=== PATIENT | female | born 1940 | race American Indian/Alaskan Native ===

== ENCOUNTER 2019-05-30 21:31 | Emergency (ER) | payer BC ==
--- NOTE | 2019-05-30 21:34 | Event Note ---
ED Screening Note ED Screening Note: 79 yo debilitated AA female comes to ER via EMS with daughter nohemi negro at home in bathroom. Not witnessed. Daughter states she was found awake- not thought to have loc. Pt has dementia and is a poor informant. She smells of urine ? UTI as etio of fall VSS. Pt in wheelchair and will not answer questions. 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 This initial assessment/diagnostic orders/clinical plan/treatment(s) is/are subject to change based on patients health status, clinical progression and re- assessment by fellow clinical providers in the ED. Further treatment and workup at subsequent clinical providers discretion. Patient/guardian urged not to elope from the ED as their condition may be serious if not clinically assessed and managed. Initial orders include: to ER for head to toe primary and secondary survey
[2019-05-30] MEDS ORDERED: TETANUS,DIPH,PERTUSS(ACELL) VACCINE 0.5 ML SYRINGE IM ONE (22:23)
[2019-05-30] MEDS ORDERED: ACETAMINOPHEN 325 MG TAB PO ONE (22:23)
[2019-05-30] MEDS ORDERED: SODIUM CHLORIDE IRRI 500 ML 500 ML IR ONE (22:37)
[2019-05-30] MEDS ORDERED: SODIUM CHLORIDE 0.9% IRR 500 ML BOTTLE IR ONE (22:45)
--- NOTE | 2019-05-30 22:50 | Emergency Department Report ---
ED Fall HPI - General Chief Complaint: Head Injury Stated Complaint: FELL,HEAD GASH Time Seen by Provider: 05/30/19 21:34 Source: patient, family Mode of arrival: Wheelchair - History of Present Illness Initial Comments: Patient is an 79-year-old female presents to the emergency room brought in by her daughter with complaints of a fall that occurred just prior to arrival. The patient's daughter states that she was getting out of the shower and slipped and fell and hit her head against the toilet seat. The daughter denies any loss of consciousness. She states that she immediately heard when the patient had the fall and went into check on her. She states that she has a laceration to the back of the scalp. The daughter denies her complaining of any chest pain, shortness of breath, dizziness, vomiting, diarrhea, any other complaints today. The daughter states that she is currently at her baseline. The patient denies any pain currently. She has a past medical history of dementia. Allergy to penicillin. Unsure of last tetanus immunization. - Related Data Allergies Allergy/AdvReac Type Severity Reaction Status Date / Time Penicillins Allergy Hives Verified 05/30/19 21:33 ED Review of Systems ROS: Stated complaint: FELL,HEAD GASH Other details as noted in HPI Comment: All other systems reviewed and negative ED Past Medical Hx - Past Medical History Previous Medical History?: Yes Additional medical history: dementia. bladder CA-REMISSION - Surgical History Additional Surgical History: HYSTERECTOMY. BLADDER CA - Social History Smoking Status: Never Smoker ED Physical Exam - General Limitations: No Limitations General appearance: alert, in no apparent distress - Head Head exam: Present: other (2 cm laceration present to the left posterior scalp, no muscle involvement, no visualized foreign body) - Eye Eye exam: Present: normal appearance, PERRL, EOMI, other (no racoon eyes, no signs of entrapement). Absent: periorbital swelling, periorbital tenderness Pupils: Present: normal accommodation - ENT ENT exam: Present: mucous membranes moist - Neck Neck exam: Present: normal inspection, full ROM. Absent: tenderness - Respiratory Respiratory exam: Present: normal lung sounds bilaterally. Absent: respiratory distress, wheezes, rales, rhonchi, stridor, chest wall tenderness, accessory muscle use, decreased breath sounds, prolonged expiratory - Cardiovascular Cardiovascular Exam: Present: regular rate, normal rhythm, normal heart sounds. Absent: systolic murmur, diastolic murmur, rubs, gallop - GI/Abdominal GI/Abdominal exam: Present: soft, normal bowel sounds. Absent: distended, tenderness, rebound, rigid - Extremities Exam Extremities exam: Present: full ROM, normal capillary refill, other (FROM of the BUE/BLE, pelvis is stable ). Absent: tenderness, pedal edema, joint swelling, calf tenderness - Back Exam Back exam: Present: normal inspection, full ROM. Absent: paraspinal tenderness, vertebral tenderness - Neurological Exam Neurological exam: Present: alert, CN II-XII intact, other (oriented to person, baseline per daughter). Absent: motor sensory deficit - Psychiatric Psychiatric exam: Present: normal affect, normal mood - Skin Skin exam: Present: warm ED Course Vital Signs 05/30/19 05/30/19 05/30/19 21:37 21:55 22:00 Temperature 98.2 F 97.9 F Pulse Rate 95 H 89 88 Respiratory 18 18 14 Rate Blood Pressure 155/76 157/85 Blood Pressure 157/87 [Left] O2 Sat by Pulse 100 100 100 Oximetry 05/30/19 05/30/19 05/31/19 22:30 23:30 00:00 Temperature Pulse Rate 88 87 85 Respiratory 15 13 18 Rate Blood Pressure 164/78 147/73 150/84 Blood Pressure [Left] O2 Sat by Pulse 98 98 Oximetry 05/31/19 05/31/19 05/31/19 00:30 00:55 01:10 Temperature Pulse Rate 79 Respiratory 17 18 18 Rate Blood Pressure 153/70 Blood Pressure [Left] O2 Sat by Pulse Oximetry - Laceration /Wound Repair Left Posterior Occipital Wound Location: head (left posterior scalp) Wound Length (cm): 2 Wound's Depth, Shape: superficial Wound Explored: clean Irrigated w/ Saline (ccs): 500 Betadine Prep?: Yes Anesthesia: 1% Lidocaine Volume Anesthetic (ccs): 2 Number of Sutures: 5 (davis) Layer Closure?: No Sterile Dressing Applied?: Yes Progress: Wound irrigated with saline and thoroughly scrubbed with Betadine, no foreign body, no muscle involvement, 2 cc of 1% lidocaine without epinephrine used as anesthetic, Betadine prep again, sterile drape applied, 5 davis placed, patient tolerated well, no complications, bleeding controlled ED Medical Decision Making - Lab Data Result diagrams: 05/30/19 22:50 05/30/19 22:50 Lab Results 05/30/19 05/30/19 05/30/19 Range/Units 22:50 22:50 22:50 WBC 10.2 (4.5-11.0) K/mm3 RBC 4.26 (3.65-5.03) M/mm3 Hgb 12.6 (10.1-14.3) gm/dl Hct 37.5 (30.3-42.9) % MCV 88 (79-97) fl MCH 30 (28-32) pg MCHC 34 (30-34) % RDW 17.5 H (13.2-15.2) % Plt Count 242 (140-440) K/mm3 Lymph % (Auto) 13.4 (13.4-35.0) % [place] % (Auto) 2.4 (0.0-7.3) % Eos % (Auto) 0.2 (0.0-4.3) % Baso % (Auto) 0.4 (0.0-1.8) % Lymph # 1.4 (1.2-5.4) K/mm3 [place] # 0.2 (0.0-0.8) K/mm3 Eos # 0.0 (0.0-0.4) K/mm3 Baso # 0.0 (0.0-0.1) K/mm3 Seg Neutrophils % 83.6 H (40.0-70.0) % Seg Neutrophils # 8.6 H (1.8-7.7) K/mm3 PT 14.5 (12.2-14.9) Sec. INR 1.11 (0.87-1.13) APTT 36.9 H (24.2-36.6) Sec. Sodium 145 (137-145) mmol/L Potassium 4.1 (3.6-5.0) mmol/L Chloride 106.7 (98-107) mmol/L Carbon Dioxide 26 (22-30) mmol/L Anion Gap 16 mmol/L BUN 23 H (7-17) mg/dL Creatinine 0.6 L (0.7-1.2) mg/dL Estimated GFR > 60 ml/min BUN/Creatinine Ratio 38 % Glucose 137 H (65-100) mg/dL Calcium 9.8 (8.4-10.2) mg/dL Total Bilirubin 0.40 (0.1-1.2) mg/dL AST 13 (5-40) units/L ALT 5 L (7-56) units/L Alkaline Phosphatase 61 (35-129) units/L Troponin T (0.00-0.029) ng/mL Total Protein 6.8 (6.3-8.2) g/dL Albumin 4.4 (3.9-5) g/dL Albumin/Globulin Ratio 1.8 % Urine Color (Yellow) Urine Turbidity (Clear) Urine pH (5.0-7.0) Ur Specific [place] (1.003-1.030) Urine Protein (Negative) mg/dL Urine Glucose (UA) (Negative) mg/dL Urine Ketones (Negative) mg/dL Urine Blood (Negative) Urine Nitrite (Negative) Urine Bilirubin (Negative) Urine Urobilinogen (<2.0) mg/dL Ur Leukocyte Esterase (Negative) Urine WBC (Auto) (0.0-6.0) /HPF Urine RBC (Auto) (0.0-6.0) /HPF U Epithel Cells (Auto) (0-13.0) /HPF Urine Mucus /HPF 05/30/19 05/30/19 Range/Units 22:50 Unknown WBC (4.5-11.0) K/mm3 RBC (3.65-5.03) M/mm3 Hgb (10.1-14.3) gm/dl Hct (30.3-42.9) % MCV (79-97) fl MCH (28-32) pg MCHC (30-34) % RDW (13.2-15.2) % Plt Count (140-440) K/mm3 Lymph % (Auto) (13.4-35.0) % [place] % (Auto) (0.0-7.3) % Eos % (Auto) (0.0-4.3) % Baso % (Auto) (0.0-1.8) % Lymph # (1.2-5.4) K/mm3 [place] # (0.0-0.8) K/mm3 Eos # (0.0-0.4) K/mm3 Baso # (0.0-0.1) K/mm3 Seg Neutrophils % (40.0-70.0) % Seg Neutrophils # (1.8-7.7) K/mm3 PT (12.2-14.9) Sec. INR (0.87-1.13) APTT (24.2-36.6) Sec. Sodium (137-145) mmol/L Potassium (3.6-5.0) mmol/L Chloride (98-107) mmol/L Carbon Dioxide (22-30) mmol/L Anion Gap mmol/L BUN (7-17) mg/dL Creatinine (0.7-1.2) mg/dL Estimated GFR ml/min BUN/Creatinine Ratio % Glucose (65-100) mg/dL Calcium (8.4-10.2) mg/dL Total Bilirubin (0.1-1.2) mg/dL AST (5-40) units/L ALT (7-56) units/L Alkaline Phosphatase (35-129) units/L Troponin T < 0.010 (0.00-0.029) ng/mL Total Protein (6.3-8.2) g/dL Albumin (3.9-5) g/dL Albumin/Globulin Ratio % Urine Color Yellow (Yellow) Urine Turbidity Clear (Clear) Urine pH 5.0 (5.0-7.0) Ur Specific [place] 1.024 (1.003-1.030) Urine Protein 30 mg/dl (Negative) mg/dL Urine Glucose (UA) Neg (Negative) mg/dL Urine Ketones Tr (Negative) mg/dL Urine Blood Neg (Negative) Urine Nitrite Neg (Negative) Urine Bilirubin Neg (Negative) Urine Urobilinogen 2.0 (<2.0) mg/dL Ur Leukocyte Esterase Neg (Negative) Urine WBC (Auto) 2.0 (0.0-6.0) /HPF Urine RBC (Auto) 1.0 (0.0-6.0) /HPF U Epithel Cells (Auto) < 1.0 (0-13.0) /HPF Urine Mucus 1+ /HPF - Radiology Data Radiology results: report reviewed CHEST 1 VIEW INDICATION / CLINICAL INFORMATION: fall, head injury. COMPARISON: None available. FINDINGS: SUPPORT DEVICES: None. HEART / MEDIASTINUM: No significant abnormality. LUNGS / PLEURA: No significant pulmonary or pleural abnormality. No pneumothorax. ADDITIONAL FINDINGS: No significant additional findings. IMPRESSION: No acute pulmonary or pleural abnormality Signer Name: Juan Jose Quintana MD FACR Signed: 05/30/2019 11:43 PM Workstation Name: [id number] Transcribed By: MS Dictated By: Juan Jose Quintana MD Electronically Authenticated By: Juan Jose Quintana MD Signed Date/Time: 05/30/193 DD/ 41 TD/TT: CT cervical spine wo con INDICATION / CLINICAL INFORMATION: Pt had a fall with head injury. Lac to back of head. No L.O.C.. TECHNIQUE: All CT scans at this location are performed using CT dose reduction for ALARA by means of automated exposure control. COMPARISON: None available. FINDINGS: The prevertebral soft tissues are normal in thickness. Moderate degenerative changes seen throughout the cervical spine. There is no evidence of a fracture. Alignment is normal. No significant spinal stenosis is seen. Soft tissues around cervical spine are normal. IMPRESSION: Moderate degenerative change in the cervical spine without evidence of a fracture Signer Name: Juan Jose Quintana MD FACR Signed: 05/30/2019 11:11 PM Workstation Name: [id number] Transcribed By: MS Dictated By: Juan Jose Quintana MD Electronically Authenticated By: Juan Jose Quintana MD Signed Date/Time: 05/30/191 DD/ TD/TT: CT head/brain wo con INDICATION / CLINICAL INFORMATION: Pt had a fall with head injury. Lac to back of head. No L.O.C.. TECHNIQUE: All CT scans at this location are performed using CT dose reduction for ALARA by means of automated exposure control. COMPARISON: None available. FINDINGS: Ventricle size is mildly enlarged and there is deepening of cortical sulci consistent with cerebral atrophy. Small vessel disease is also seen. No mass or mass effect is identified. There is no evidence of intracranial hemorrhage. No obvious area of infarction is seen. No fracture is present. A scalp hematoma is seen posteriorly. Visualized paranasal sinuses are clear. IMPRESSION: Scalp hematoma posteriorly. No acute intracranial findings Signer Name: Juan Jose Quintana MD FACR Signed: 05/30/2019 11:07 PM Workstation Name: [id number] Transcribed By: MS Dictated By: Juan Jose Quintana MD Electronically Authenticated By: Juan Jose Quintana MD Signed Date/Time: 05/30/192306 DD/ 2306 TD/TT: - Medical Decision Making Patient is an 79-year-old female presents to the emergency room brought in by her daughter with complaints of a fall that occurred just prior to arrival. The patient's daughter states that she was getting out of the shower and slipped and fell and hit her head against the toilet seat. The daughter denies any loss of consciousness. She states that she immediately heard when the patient had the fall and went into check on her. She states that she has a laceration to the back of the scalp. The daughter denies her complaining of any chest pain, shortness of breath, dizziness, vomiting, diarrhea, any other complaints today. The daughter states that she is currently at her baseline. The patient denies any pain currently. She has a past medical history of dementia. Allergy to penicillin. Unsure of last tetanus immunization. on exam: 2 cm laceration present to the left posterior scalp, no muscle involvement, no visualized foreign body. CXR: No acute pulmonary or pleural abnormality. CT head: Scalp hematoma posteriorly. No acute intracranial findings. CT cervical spine: Moderate degenerative change in the cervical spine without evidence of a fracture. labs are stable. UA without evidence of UTI. Discussed all results with patient's daughter. Wound irrigated with saline and thoroughly scrubbed with Betadine and repaired per procedure note with davis. Given tetanus immunization and liquid tylenol. advisd pts daughter. May give Tylenol as needed for pain. Davis will need to be removed in 5 to 7 days. May wash around area with soap and water and immediately dry. No hot tub, no bathtub, no pool, no soaking in water. Follow-up with a primary care doctor in the next 2 to 3 days. Return to the emergency room immediately for any new or worsening symptoms including but not limited to acting abnormally, lethargic, vision changes, numbness, weakness, vomiting, etc. - Differential Diagnosis Strain, sprain, fracture, dislocation, ICH, SDH, concussion, contusion Critical care attestation.: If time is entered above; I have spent that time in minutes in the direct care of this critically ill patient, excluding procedure time. ED Disposition Clinical Impression: Laceration Fall Qualifiers: Encounter type: initial encounter Qualified Code(s): W19.XXXA - Unspecified fall, initial encounter Head injury Qualifiers: Encounter type: initial encounter Qualified Code(s): S09.90XA - Unspecified injury of head, initial encounter Disposition: TO HOME OR SELFCARE Is pt being admited?: No Does the pt Need Aspirin: No Condition: Stable Instructions: Laceration (ED), Minor Head Injury (ED), Staple Care (ED) Additional Instructions: May give Tylenol as needed for pain. Davis will need to be removed in 5 to 7 days. May wash around area with soap and water and immediately dry. No hot tub, no bathtub, no pool, no soaking in water. Follow-up with a primary care doctor in the next 2 to 3 days. Return to the emergency room immediately for any new or worsening symptoms including but not limited to acting abnormally, l ethargic, vision changes, numbness, weakness, vomiting, etc. Referrals: PRIMARY CARE, [Primary Care Provider] - 2-3 Days Time of Disposition: 00:35 Print Language: ARMENIAN
--- NOTE | 2019-05-30 23:11 | Cat Scan Report ---
CT head/brain wo con INDICATION / CLINICAL INFORMATION: Pt had a fall with head injury. Lac to back of head. No L.O.C.. TECHNIQUE: All CT scans at this location are performed using CT dose reduction for ALARA by means of automated e xposure control. COMPARISON: None available. FINDINGS: Ventricle size is mildly enlarged and there is deepening of cortical sulci consistent with cerebral a trophy. Small vessel disease is also seen. No mass or mass effect is identified. There is no evidence of intracranial hemorrhage. No obvious area of infarction is seen. No fracture is present. A scalp h ematoma is seen posteriorly. Visualized paranasal sinuses are clear. IMPRESSION: Scalp hematoma posteriorly. No acute intracranial findings Signer Name: Juan Jose Quintana MD FACR Signed: 05/30/2019 11:07 PM Workstation Name: [id number]
--- NOTE | 2019-05-30 23:16 | Cat Scan Report ---
CT cervical spine wo con INDICATION / CLINICAL INFORMATION: Pt had a fall with head injury. Lac to back of head. No L.O.C.. TECHNIQUE: All CT scans at this location are performed using CT dose reduction for ALARA by means of automated e xposure control. COMPARISON: None available. FINDINGS: The prevertebral soft tissues are normal in thickness. Moderate degenerative changes seen throughout the cervical spine. There is no evidence of a fracture. Alignment is normal. No significant spinal st enosis is seen. Soft tissues around cervical spine are normal. IMPRESSION: Moderate degenerative change in the cervical spine without evidence of a fracture Signer Name: Juan Jose Quintana MD FACR Signed: 05/30/2019 11:11 PM Workstation Name: [id number]
[2019-05-30 23:42] LABS: Basophils % (Auto) 0.4 % (0.0-1.8); Eosinophils % (Auto) 0.2 % (0.0-4.3); Hematocrit 37.5 % (30.3-42.9); Hemoglobin 12.6 gm/dl (10.1-14.3); Lymphocytes # (Auto) 1.4 K/mm3 (1.2-5.4); Lymphocytes % (Auto) 13.4 % (13.4-35.0); Mean Corpuscular HGB Conc 34 % (30-34); Mean Corpuscular Volume 88 fl (79-97); Monocytes # (Auto) 0.2 K/mm3 (0.0-0.8); Monocytes % (Auto) 2.4 % (0.0-7.3); Platelet Count 242 K/mm3 (140-440); Red Blood Count 4.26 M/mm3 (3.65-5.03); Red Cell Distribution Width 17.5 % (13.2-15.2)
--- NOTE | 2019-05-30 23:47 | XRay Report ---
CHEST 1 VIEW INDICATION / CLINICAL INFORMATION: fall, head injury. COMPARISON: None available. FINDINGS: SUPPORT DEVICES: None. HEART / MEDIASTINUM: No significant abnormality. LUNGS / PLEURA: No significant pulmonary or pleural abnormality. No pneumothorax. ADDITIONAL FINDINGS: No significant additional findings. IMPRESSION: No acute pulmonary or pleural abnormality Signer Name: Juan Jose Quintana MD FACR Signed: 05/30/2019 11:43 PM Workstation Name: [id number]
[2019-05-30] MEDS ORDERED: LIDOCAINE-MPF (1%) 10 MG/1 ML VIAL 5 ML INFILTRATI ONE (23:53)
[2019-05-30 23:59] LABS: INR 1.11 (0.87-1.13)
[2019-05-31] LABS: Bilirubin,Urine NEG (Negative); Blood,Urine NEG (Negative); Color,Urine Yellow (Yellow); Mucus,Urine 1+ /HPF
[2019-05-31] LABS: Partial Thromboplastin Time 36.9 Sec. (24.2-36.6)
[2019-05-31 00:13] LABS: Alanine Aminotransferase 5 units/L (7-56); Albumin 4.4 g/dL (3.9-5); BUN/Creatinine Ratio 38; Blood Urea Nitrogen 23 mg/dL (7-17); Calcium 9.8 mg/dL (8.4-10.2); Hemolysis Index 4
[2019-05-31] MEDS ORDERED: ACETAMINOPHEN 325 MG/10.15 ML ORAL LIQD UNIT DOSE PO ONE (00:24)
[2019-05-31 00:44] VITALS: BP 153/70
== END 2019-05-31 01:10 | disposition home or self-care (01) ==
LOC: ED 21:31
DX: S01.01XA Laceration without foreign body of scalp, initial encounter (principal); F03.90 Unspecified dementia, unspecified severity, without behavioral disturbance, psychotic disturbance, mood disturbance, and anxiety; Z98.890 Other specified postprocedural states; Z79.899 Other long term (current) drug therapy; Z90.710 Acquired absence of both cervix and uterus; Z88.0 Allergy status to penicillin; W01.0XXA Fall on same level from slipping, tripping and stumbling without subsequent striking against object, initial encounter; Y93.89 Activity, other specified; Y92.091 Bathroom in other non-institutional residence as the place of occurrence of the external cause; Y99.8 Other external cause status
CPT/HCPCS: 36415; 70450; 71045; 72125; 80053; 81001; 84484; 85025; 85610; 85730; 90471; 90715

== ENCOUNTER 2019-12-13 18:21 | Observation (INO) | payer MEDICARE ==
--- NOTE | 2019-12-13 19:11 | Emergency Department Report ---
ED Chest Pain HPI - General Chief Complaint: Chest Pain Stated Complaint: CHEST PAIN PUI?: No Time Seen by Provider: 12/13/19 19:01 Source: EMS Mode of arrival: Wheelchair Limitations: Physical Limitation - History of Present Illness Initial Comments: Patient is an 79-year-old female that presents emergency room with complaints of chest pain. Patient states the chest pain is in her left chest. Patient states her chest pain started 24 hours ago. Patient dates the chest pain is nonradiating. Patient states the pain is a 6 out of 10. Patient states the pain is better with rest and worse with exertion and movement. Patient states the pain is unchanged with palpation. Patient denies cough. Patient denies fever and chills. Patient denies shortness of breath. Patient denies recent travel. Patient denies recent international travel. Patient denies exposure to the novel coronavirus. Patient denies sick contacts. Patient denies fever and chills. Patient denies cough. Patient denies diarrhea. Patient denies coming in contact with anybody with symptoms of the novel coronavirus. MD Complaint: chest pain -: Sudden Onset: during rest Pain Location: substernal, left chest Pain Radiation: none Severity: severe Severity scale (0 -10): 6 Quality: sharp Consistency: constant Improves With: rest Worsens With: exertion re: denies: nausea, vomting, diaphoresis, dyspnea, sense of impending doom Other Symptoms: denies: cough, fever, syncope, rash, acid taste in mouth, leg swelling, palpitations, burping Treatments Prior to Arrival: aspirin Aspirin use within the Past 7 Days: (1) Yes - Related Data On Oral Contraceptives: No Previous Rx's Medication Instructions Recorded Last Taken Type Acetaminophen [Acetaminophen TAB] 650 mg PO Q4H PRN tablet 11/07/19 Unknown Rx Aspirin EC [Halfprin EC] 81 mg PO QDAY #30 tablet.dr 11/07/19 Unknown Rx AtorvaSTATin [Lipitor] 20 mg PO QHS #30 tab 11/07/19 Unknown Rx bisacodyL [Dulcolax suppos] 10 mg [place] QDAY PRN supp.rect 11/07/19 Unknown Rx Allergies Allergy/AdvReac Type Severity Reaction Status Date / Time Penicillins Allergy Hives Verified 12/13/19 18:56 Sulfa (Sulfonamide Allergy Hives Verified 12/13/19 18:56 Antibiotics) tetracycline Allergy Hives Verified 12/13/19 19:39 Heart Score - HEART Score History: Moderately suspicious EKG: Non-specific Age: > 65 Risk factors: > 3 risk factors or hx of atherosclerotic disease Troponin: < normal limit HEART Score: 6 ED Review of Systems ROS: Stated complaint: CHEST PAIN Other details as noted in HPI Constitutional: denies: chills, fever Eyes: denies: eye pain, eye discharge, vision change ENT: denies: ear pain, throat pain Respiratory: denies: cough, shortness of breath, wheezing Cardiovascular: chest pain. denies: palpitations Endocrine: no symptoms reported Gastrointestinal: denies: abdominal pain, nausea, diarrhea Genitourinary: denies: urgency, dysuria, discharge Musculoskeletal: denies: back pain, joint swelling, arthralgia Skin: denies: rash, lesions Neurological: denies: headache, weakness, paresthesias Psychiatric: denies: anxiety, depression Hematological/Lymphatic: denies: easy bleeding, easy bruising ED Past Medical Hx - Past Medical History Previous Medical History?: Yes Hx Hypertension: Yes Hx Congestive Heart Failure: No Hx Diabetes: Yes Hx Asthma: No Hx COPD: No Hx Dementia: Yes (2018) Additional medical history: dementia. bladder CA-REMISSION - Surgical History Additional Surgical History: HYSTERECTOMY. BLADDER CA - Social History Smoking Status: Never Smoker - Medications Home Medications: Home Medications Medication Instructions Recorded Confirmed Last Taken Type Acetaminophen [Acetaminophen TAB] 650 mg PO Q4H PRN tablet 11/07/19 Unknown Rx Aspirin EC [Halfprin EC] 81 mg PO QDAY #30 tablet.dr 11/07/19 Unknown Rx AtorvaSTATin [Lipitor] 20 mg PO QHS #30 tab 11/07/19 Unknown Rx bisacodyL [Dulcolax suppos] 10 mg [place] QDAY PRN supp.rect 11/07/19 Unknown Rx ED Physical Exam - General Limitations: Physical Limitation General appearance: alert, in no apparent distress - Head Head exam: Present: atraumatic, normocephalic - Eye Eye exam: Present: normal appearance - ENT ENT exam: Present: mucous membranes moist - Neck Neck exam: Present: normal inspection - Respiratory Respiratory exam: Present: normal lung sounds bilaterally. Absent: respiratory distress, wheezes, rales, chest wall tenderness - Cardiovascular Cardiovascular Exam: Present: regular rate, normal rhythm. Absent: systolic murmur, diastolic murmur, rubs, gallop - GI/Abdominal GI/Abdominal exam: Present: soft, normal bowel sounds. Absent: distended, tenderness, guarding - Extremities Exam Extremities exam: Present: normal inspection - Back Exam Back exam: Present: normal inspection - Neurological Exam Neurological exam: Present: alert, oriented X3 - Psychiatric Psychiatric exam: Present: normal affect, normal mood - Skin Skin exam: Present: warm, dry, intact, normal color. Absent: rash ED Course Vital Signs 12/13/19 12/13/19 12/13/19 19:27 19:31 19:39 Temperature 97.9 F Pulse Rate 90 90 Respiratory 10 L 12 18 Rate Blood Pressure 173/72 O2 Sat by Pulse 99 97 97 Oximetry 12/13/19 12/13/19 12/13/19 19:45 20:01 20:15 Temperature Pulse Rate 87 85 88 Respiratory 12 16 13 Rate Blood Pressure 173/72 159/68 159/68 O2 Sat by Pulse 98 97 Oximetry 12/13/19 12/13/19 12/13/19 20:31 21:19 21:31 Temperature Pulse Rate 94 H 92 H 89 Respiratory 11 L 16 Rate Blood Pressure 184/70 184/70 141/72 O2 Sat by Pulse 94 Oximetry 12/13/19 12/13/19 12/13/19 21:45 22:00 22:15 Temperature Pulse Rate 96 H 99 H 99 H Respiratory 19 20 22 Rate Blood Pressure 141/72 127/55 136/65 O2 Sat by Pulse Oximetry 12/13/19 12/13/19 12/13/19 22:30 22:45 23:00 Temperature Pulse Rate 104 H 104 H 112 H Respiratory 18 21 14 Rate Blood Pressure 136/60 132/66 121/67 O2 Sat by Pulse 95 95 Oximetry 12/13/19 12/13/19 12/13/19 23:15 23:30 23:45 Temperature Pulse Rate 114 H 112 H 115 H Respiratory 22 15 12 Rate Blood Pressure 115/82 126/39 126/39 O2 Sat by Pulse 94 90 Oximetry 12/14/19 12/14/19 00:00 00:07 Temperature Pulse Rate 107 H Respiratory 18 Rate Blood Pressure 147/64 O2 Sat by Pulse 77 L 94 Oximetry - Reevaluation(s) Reevaluation #1: I discussed all results with patient. I discussed plan of care with patient. Patient agrees with plan of care and admission. Patient to be admitted to the hospitalist service. 12/13/19 22:40 - Consultations Consultation #1: Hospitalist consulted for admission. Hospitalist to admit patient. 12/13/19 22:40 CONNIE score - Connie Score Age > 65: (1) Yes Aspirin use within the Past 7 Days: (1) Yes 3 or more CAD Risk Factors: (1) Yes 2 or more Angina events in past 24 hrs: (0) No Known CAD with more than 50% Stenosis: (0) No Elevated Cardiac Markers: (0) No ST Deviation Greater than 0.5mm: (0) No CNONIE Score: 3 ED Medical Decision Making - Lab Data Result diagrams: 12/13/19 23:48 12/13/19 23:48 - EKG Data -: EKG Interpreted by Me EKG shows normal: sinus rhythm, intervals, QRS complexes, ST-T waves Rate: normal - Radiology Data Radiology results: report reviewed, image reviewed interpreted by me: Chest x-ray: No pneumonia, no pneumothorax, no foreign body, no osseous findings, no acute findings CHEST 1 VIEW INDICATION: MAIN. Acute substernal chest pain COMPARISON: Chest x-ray from 05/30/2019 FINDINGS: SUPPORT DEVICES: None. HEART: Within normal limits. LUNGS/PLEURA: No acute air space or interstitial disease. ADDITIONAL FINDINGS: None. IMPRESSION: 1. No acute findings. - Medical Decision Making Patient is an 79-year-old female that presents emergency room with complaints of chest pain. Patient had labs done which were essentially unremarkable. Patient's troponin negative. Patient chest x-ray negative. Patient EKG negative. Patient has an elevated heart score. Patient admitted to the hosp italist service for further evaluation and treatment and rule out ACS. - Differential Diagnosis Chest pain, ACS, diabetes, Critical Care Time: Yes Critical care time in (mins) excluding proc time.: 35 Critical care attestation.: If time is entered above; I have spent that time in minutes in the direct care of this critically ill patient, excluding procedure time. Critical Care Time: 35 minutes ED Disposition Clinical Impression: Abnormal EKG, Abnormal LFTs Chest pain Qualifiers: Chest pain type: unspecified Qualified Code(s): R07.9 - Chest pain, unspecified Disposition: DC-09 OP ADMIT IP TO THIS HOSP Is pt being admited?: Yes Does the pt Need Aspirin: No Condition: Critical Time of Disposition: 22:40
[2019-12-13] MEDS ORDERED: ASPIRIN 325 MG TAB PO ONE (19:26)
[2019-12-13 20:07] LABS: Basophils % (Auto) 0.2 % (0.0-1.8); Eosinophils % (Auto) 0.4 % (0.0-4.3); Hematocrit 34.3 % (30.3-42.9); Hemoglobin 11.7 gm/dl (10.1-14.3); Lymphocytes # (Auto) 0.9 K/mm3 (1.2-5.4); Lymphocytes % (Auto) 8.8 % (13.4-35.0); Mean Corpuscular HGB Conc 34 % (30-34); Mean Corpuscular Volume 87 fl (79-97); Monocytes # (Auto) 0.3 K/mm3 (0.0-0.8); Platelet Count 249 K/mm3 (140-440); Red Blood Count 3.92 M/mm3 (3.65-5.03); Red Cell Distribution Width 15.9 % (13.2-15.2)
--- NOTE | 2019-12-13 20:23 | XRay Report ---
CHEST 1 VIEW INDICATION: MAIN. Acute substernal chest pain COMPARISON: Chest x-ray from 05/30/2019 FINDINGS: SUPPORT DEVICES: None. HEART: Within normal limits. LUNGS/PLEURA: No acute air space or interstitial disease. ADDITIONAL FINDINGS: None. IMPRESSION: 1. No acute findings. Signer Name: Davidson Gastelum MD Signed: 12/13/2019 8:18 PM Workstation Name: [id number]
[2019-12-13 20:24] LABS: Alanine Aminotransferase 68 units/L (7-56); Albumin 4.2 g/dL (3.9-5); BUN/Creatinine Ratio 45; Blood Urea Nitrogen 27 mg/dL (7-17); Hemolysis Index 6
[2019-12-13] MEDS ORDERED: NITROGLYCERIN 0.4 MG TAB SUBL SL PRN (23:12)
[2019-12-13] MEDS ORDERED: MORPHINE 4 MG/1 ML INJ IV PRN (23:12)
[2019-12-13] MEDS ORDERED: ACETAMINOPHEN 325 MG TAB PO PRN (23:12)
[2019-12-13] MEDS ORDERED: ONDANSETRON 4 MG/2 ML INJ IV PRN (23:12)
--- NOTE | 2019-12-13 23:29 | History and Physical Report ---
History of Present Illness Date of examination: 12/13/19 Date of admission: 12/13/2019 Chief complaint: Chest Pain History of present illness: 79-year-old female with known history of hypertension, diabetes mellitus, dementia and history of bladder cancer in remission presenting to the emergency room today complaining of chest pain. Chest pain was said to have started about 24 hours ago and it has been intermittent, located on the left side of her chest and now radiating. On a scale of 10 pain was about 6/10 in severity and is made worse by exertion. Patient denies any shortness of breath, no diaphoresis, no nausea or vomiting, no headache or dizziness, no hematuria or dysuria. She denies any sick contacts and no recent travel. She denies any contact with anyone with COVID-19. Work-up in the emergency room including EKG, troponin and chest x-ray were unremarkable. Patient is being admitted for work-up of her chest pain. Past History Past Medical History: diabetes, hypertension, hyperlipidemia, other (Rui ia,Bladder ca- on remission) Past Surgical History: hysterectomy, Other (Bladder surgery) Social history: no significant social history Family history: no significant family history Medications and Allergies Allergies Allergy/AdvReac Type Severity Reaction Status Date / Time Penicillins Allergy Hives Verified 12/13/19 18:56 Sulfa (Sulfonamide Allergy Hives Verified 12/13/19 18:56 Antibiotics) tetracycline Allergy Hives Verified 12/13/19 19:39 Home Medications Medication Instructions Recorded Confirmed Last Taken Type Acetaminophen [Acetaminophen TAB] 650 mg PO Q4H PRN tablet 11/07/19 Unknown Rx Aspirin EC [Halfprin EC] 81 mg PO QDAY #30 tablet.dr 11/07/19 Unknown Rx AtorvaSTATin [Lipitor] 20 mg PO QHS #30 tab 11/07/19 Unknown Rx bisacodyL [Dulcolax suppos] 10 mg [place] QDAY PRN supp.rect 11/07/19 Unknown Rx Active Meds: Active Medications Acetaminophen (Tylenol) 650 mg PO Q4H PRN PRN Reason: Pain MILD(1-3)/Fever >100.5/AGUILAR Acetaminophen (Tylenol) 650 mg PO Q6H PRN PRN Reason: Pain, Mild (1-3) Aspirin (Ecotrin) 325 mg PO QDAY JHONNY Enoxaparin Sodium (Enoxaparin) 40 mg SUB-Q QDAY@2200 [facility]; Protocol Morphine Sulfate (Morphine) 2 mg IV Q5MIN PRN PRN Reason: Chest Pain Nitroglycerin (Nitrostat) 0.4 mg SL Q5M PRN PRN Reason: Chest Pain Ondansetron HCl (Zofran) 4 mg IV Q8H PRN PRN Reason: Nausea And Vomiting Sodium Chloride (Sodium Chloride Flush Syringe 10 Ml) 10 ml IV BID JHONNY Sodium Chloride (Sodium Chloride Flush Syringe 10 Ml) 10 ml IV PRN PRN PRN Reason: LINE FLUSH Sodium Chloride (Sodium Chloride Flush Syringe 10 Ml) 10 ml IV PRN PRN PRN Reason: LINE FLUSH Review of Systems Constitutional: no fever, no chills Ears, nose, mouth and throat: no nasal congestion, no sore throat Cardiovascular: chest pain, no palpitations Respiratory: no cough, no shortness of breath Gastrointestinal: no abdominal pain, no nausea, no vomiting, no diarrhea Genitourinary Female: no flank pain, no dysuria, no hematuria Musculoskeletal: no neck pain, no low back pain Integumentary: no rash, no pruritis Neurological: no headaches, no confusion Psychiatric: no anxiety, no depression Exam - Constitutional Vitals: Temp Pulse Resp BP Pulse Ox 97.9 F 94 H 11 L 184/70 97 12/13/19 19:39 12/13/19 20:31 12/13/19 20:31 12/13/19 20:31 12/13/19 20:15 General appearance: Present: no acute distress, well-nourished - EENT Eyes: Present: PERRL, EOM intact. Absent: scleral icterus ENT: hearing intact, clear oral mucosa, dentition normal - Neck Neck: Present: supple, normal ROM - Respiratory Respiratory effort: normal Respiratory: bilateral: CTA - Cardiovascular Rhythm: regular Heart Sounds: Present: S1 & S2. Absent: gallop, systolic murmur, diastolic mur mur, rub - Extremities Extremities: no ischemia, pulses intact, pulses symmetrical, No edema, Full ROM Peripheral Pulses: within normal limits - Abdominal General gastrointestinal: Present: soft, non-tender, non-distended, normal bowel sounds. Absent: mass - Integumentary Integumentary: Present: clear, warm, dry - Musculoskeletal Musculoskeletal: strength equal bilaterally - Psychiatric Psychiatric: appropriate mood/affect, intact judgment & insight, memory intact, cooperative - Neurologic Neurologic: CNII-XII intact, no focal deficits, moves all extremities HEART Score - HEART Score History: Slightly suspicious EKG: Non-specific Age: > 65 Risk factors: > 3 risk factors or hx of atherosclerotic disease Troponin: Troponin T < 0.010 ng/mL (0.00-0.029) 12/13/19 19:28 Troponin: < normal limit HEART Score: 5 Results - Labs CBC & Chem 7: 12/14/19 02:15 12/14/19 02:15 Labs: Abnormal lab results 12/13/19 12/13/19 Range/Units 19:28 19:28 RDW 15.9 H (13.2-15.2) % Lymph % (Auto) 8.8 L (13.4-35.0) % Lymph # (Auto) 0.9 L (1.2-5.4) K/mm3 Seg Neutrophils % 87.6 H (40.0-70.0) % Seg Neutrophils # 8.8 H (1.8-7.7) K/mm3 Sodium 146 H (137-145) mmol/L BUN 27 H (7-17) mg/dL Glucose 177 H (65-100) mg/dL AST 192 H (5-40) units/L ALT 68 H (7-56) units/L Alkaline Phosphatase 136 H (35-129) units/L Assessment and Plan - Patient Problems (1) Chest pain Current Visit: Yes Status: Acute Qualifiers: Chest pain type: unspecified Qualified Code(s): R07.9 - Chest pain, unspeci fied Plan to address problem: We will check serial cardiac enzymes. Patient placed on daily aspirin, sublingual nitroglycerin and IV morphine as needed for chest pain. We will schedule patient for stress test. (2) Diabetes mellitus Current Visit: No Status: Acute Plan to address problem: We will monitor Accu-Cheks. (3) Hypertension Current Visit: No Status: Acute Plan to address problem: We will resume routine home medications once reconciled and monitor vital signs closely. (4) DVT prophylaxis Current Visit: No Status: Acute Plan to address problem: Patient placed on subcutaneous Lovenox. (5) Full code status Current Visit: No Status: Acute
[2019-12-14 00:08] LABS: Hematocrit 34.9 % (30.3-42.9); Hemoglobin 11.7 gm/dl (10.1-14.3); Mean Corpuscular HGB Conc 34 % (30-34); Mean Corpuscular Volume 89 fl (79-97); Platelet Count 204 K/mm3 (140-440); Red Blood Count 3.94 M/mm3 (3.65-5.03); Red Cell Distribution Width 15.7 % (13.2-15.2)
[2019-12-14 00:23] LABS: Blood Urea Nitrogen 29 mg/dL (7-17); Calcium 9.8 mg/dL (8.4-10.2); Hemolysis Index 3
[2019-12-14 00:24] LABS: BUN/Creatinine Ratio 41
[2019-12-14 00:29] LABS: Mean Platelet Volume 8.9 fl (6-12)
[2019-12-14 00:30] LABS: Basophils % (Auto) 0.1 % (0.0-1.8); Lymphocytes # (Auto) 0.1 K/mm3 (1.2-5.4); Lymphocytes % (Auto) 1.4 % (13.4-35.0); Monocytes # (Auto) 0.1 K/mm3 (0.0-0.8); Monocytes % (Auto) 1.2 % (0.0-7.3)
[2019-12-14 02:30] LABS: Hematocrit 35.1 % (30.3-42.9); Hemoglobin 11.8 gm/dl (10.1-14.3); Mean Corpuscular HGB Conc 34 % (30-34); Mean Corpuscular Volume 88 fl (79-97); Platelet Count 205 K/mm3 (140-440); Red Blood Count 3.97 M/mm3 (3.65-5.03); Red Cell Distribution Width 16.2 % (13.2-15.2)
[2019-12-14 02:40] LABS: INR 1.07 (0.87-1.13)
[2019-12-14 02:47] LABS: Blood Urea Nitrogen 30 mg/dL (7-17); Hemolysis Index 38
[2019-12-14 02:52] LABS: BUN/Creatinine Ratio 43
[2019-12-14 04:14] LABS: Basophils % (Manual) 0 % (0.0-1.8); Eosinophils % (Manual) 0 % (0.0-4.3); Total Cells Counted 100
[2019-12-14 04:15] LABS: Burr Cells Few; Crenated RBC Few; Platelet Estimate Consistent w Auto
[2019-12-14 04:19] LABS: Chol/HDL Ratio 2.34 %
[2019-12-14] MEDS ORDERED: REGADENOSON 0.4 MG/5 ML INJ IV ONE ×2 (07:17→07:32)
[2019-12-14] MEDS: ASPIRIN EC 325 MG TAB PO SCH (10:27)
--- NOTE | 2019-12-14 11:16 | Event Note ---
Date: 12/14/19 Detailed cardiology consultation dictated. S/P Lexiscan MPI stress today which was negative. tte done 10/2019 showed EF 60-65%, mild to mod LVH, mild MS with mean gradient of 4.7mmHg, mild MR, mild to mod with mean gradient of 10.9mmHg and AVA1.45cm, mild AR, trace TR. Currently stable cardiac status. Pt may discharge from cardiology standpoint and will follow as OP. Recommend f/u in our office with Dr. Afia Maldonado within 2 weeks ([phone]). Linnea ROSAS NP / DR. Afia MALDONADO
--- NOTE | 2019-12-14 11:41 | Discharge Summary ---
Providers - Providers Date of Admission: 12/13/19 23:09 Date of discharge: 12/14/19 Attending physician: SHANIA ARBOLEDA 12/13/19 Consult to Cardiac Rehabilitation [CONS] Routine Reason For Exam: Phase I 12/13/19 23:13 Consult to Cardiology [CONS] Routine Consulting Provider: FABIOLA DIXON Reason For Exam: chest pain Primary care physician: WIRE COILER Hospitalization Condition: Critical Pertinent studies: Chest x-ray: Exercise stress test Hospital course: 79-year-old female with known history of hypertension, diabetes mellitus, dementia and history of bladder cancer in remission presenting to the emergency room with complaining of chest pain. C Work-up in the emergency room including EKG, troponin and chest x-ray were unremarkable. Patient was admitted for work-up of her chest pain. She underwent myocardial stress test which was normal. Following the stress test she spiked fever, infectious workup was negative. started on Levaquin for UTI. Patient was then discharged home in stable condition with outpatient follow-up. Discharge diagnosis: Atypical chest pain, likely GERD -MPI stress test was normal, cont PPI Febrile illness, likely mild UTI - POA - CXR no infiltrates, UA with +ve WBCs with normal LE -negative COVID 19 - started on levaquin empirically for UTI Chronic medical issues: Hypertension Diabetes mellitus Dementia History of bladder cancer in remission -- cont home meds Disposition: [id number]/TX-06 HOME UNDER [facility] Time spent for discharge: 34 minutes Core Measure Documentation - Palliative Care Palliative Care/ Comfort Measures: Not Applicable - Core Measures Any of the following diagnoses?: none Exam - Physical Exam Narrative exam: General appearance: Present: no acute distress, well-nourished - EENT Eyes: Present: PERRL, EOM intact. Absent: scleral icterus ENT: hearing intact, clear oral mucosa, dentition normal - Neck Neck: Present: supple, normal ROM - Respiratory Respiratory effort: normal Respiratory: bilateral: CTA - Cardiovascular Rhythm: regular Heart Sounds: Present: S1 & S2. Absent: gallop, systolic murmur, diastolic murmur, rub - Extremities Extremities: no ischemia, pulses intact, pulses symmetrical, No edema, Full ROM Peripheral Pulses: within normal limits - Abdominal General gastrointestinal: Present: soft, non-tender, non-distended, normal bowel sounds. Absent: mass - Integumentary Integumentary: Present: clear, warm, dry - Musculoskeletal Musculoskeletal: strength equal bilaterally - Psychiatric Psychiatric: appropriate mood/affect, intact judgment & insight, memory intact, cooperative - Neurologic Neurologic: CNII-XII intact, no focal deficits, moves all extremities - Constitutional Vitals: Temp Pulse Resp BP Pulse Ox 97.6 F 79 18 111/46 98 12/14/19 08:55 12/14/19 11:05 12/14/19 11:05 12/14/19 10:23 12/14/19 11:05 Plan Activity: advance as tolerated Weight Bearing Status: Non-Weight Bearing Diet: low fat, low salt Plan of Treatment: Nurse/Aide/PT/OT current with [employer] [phone] Follow up with: PRIMARY MD CARLOS [Primary Care Provider] - 7 Days EDDIE MCCLOUD MD [Staff Physician] - 7 Days Prescriptions: levoFLOXacin [Levaquin TAB] 500 mg PO QDAY #5 tablet Pantoprazole [Protonix] 40 mg PO QDAY #30 tablet
--- NOTE | 2019-12-14 12:58 | Consultation ---
CARDIOLOGY CONSULTATION REFERRING PHYSICIAN: Hospitalist service. REASON FOR CONSULTATION: Advice and opinion regarding chest pain. HISTORY OF PRESENT ILLNESS: The patient is a very pleasant 79-year-old -Citizen Of [place] female with history of hypertension, diabetes, dementia, bladder cancer in remission, who presents with chest pain yesterday; left-sided chest pain, sharp, worse with torquing her chest, nonexertional. No syncope or presyncope. No associated shortness of breath, diaphoresis. Denies any sick contacts. She is seen in the stress lab today. She is chest pain free, states she had no symptoms overnight. She is admitted for further workup. PAST MEDICAL HISTORY: Diabetes, hypertension, hyperlipidemia, dementia. PAST SURGICAL HISTORY: Hysterectomy. SOCIAL HISTORY: Noncontributory. Nonsmoker, nondrinker. FAMILY HISTORY: No family history of premature heart disease. ALLERGIES: PENICILLIN, SULFA, TETRACYCLINE. MEDICATIONS: Inpatient and outpatient medications reviewed. REVIEW OF SYSTEMS: As per HPI. LABORATORY DATA: ECG reveals sinus tachycardia, no acute ST-segment shift. CBC is unremarkable. BMP is unremarkable outside of a glucose of 202. Two troponins are negative. LFTs are mildly elevated. ASSESSMENT: In summary, the patient is a pleasant 79-year-old -Citizen Of [place] female with chest pain, mostly atypical features. Troponin x 2 negative. EKG, nonacute. She is satting 99% on room air. Stress test today is pending. Primary and secondary prevention measures. She is clinically stable. We will follow along with you. Thank you for this consultation. JOB# [id number] SBM/NTS
--- NOTE | 2019-12-14 13:12 | Treadmill Report ---
NUCLEAR PERFUSION SCAN REFERRING PHYSICIAN: Hospitalist service. PROTOCOL: The patient was assessed in postoperative state. The patient was given 10 mCi of technetium 99m at rest. The patient underwent rest imaging. The patient underwent Lexiscan stress test per standard protocol. At peak stress, the patient was given 26 mCi cath lab radiology technician 99m. Shortly thereafter, the patient underwent stress imaging. Raw imaging reveals mild GI artifact. No significant motion artifact. SPECT imaging examined carefully in horizontal long axis, vertical long axis, short axis views. There is normal mitral uptake of radioisotope in all reported segments. No evidence of a significant fixed or reversible perfusion defects suggestive of prior infarction or ischemia. Gated wall motion reveals normal systolic thickening, no TID, with calculated ejection fraction of 71%. CONCLUSIONS: 1. Normal myocardial perfusion scan without evidence of active ischemia or prior infarction. 2. Normal left ventricular systolic performance without evidence of transient ischemic dilatation or stress-induced segmental wall motion abnormalities. JOB# [id number] ZEE/MAXIMILIANO
[2019-12-14] MEDS: ACETAMINOPHEN 325 MG TAB PO PRN ×2 (14:31→21:41)
[2019-12-14] MEDS: levoFLOXacin 500 MG TAB PO SCH (15:44)
[2019-12-14 16:12] LABS: Bacteria,Urine 1+ /HPF (Negative); Bilirubin,Urine SM (Negative); Blood,Urine SM (Negative); Color,Urine Amber (Yellow); Mucus,Urine FEW /HPF
[2019-12-14 16:56] LABS: Ictotest,Urine Negative (Negative)
[2019-12-14] MEDS: ENOXAPARIN 40 MG/0.4 ML INJ SUB-Q SCH ×2 (21:41→21:49)
[2019-12-15] MEDS: ASPIRIN EC 325 MG TAB PO SCH (09:11)
[2019-12-15] MEDS: levoFLOXacin 500 MG TAB PO SCH (09:11)
--- NOTE | 2019-12-15 09:30 | Event Note ---
Date: 12/14/19 Patient spiked fever of 101.5, UA CXR unremarkable will hold d/c, order for COVID 19 test if infectious work up negative then d/c bob am
--- NOTE | 2019-12-15 14:05 | Progress Note ---
Assessment and Plan Atypical chest pain, likely GERD -MPI stress test was normal - start on PPI Febrile illness - CXR no infiltrates, UA with +ve WBCs with normal LE -will order for COVID 19 - start on levaquin empirically for now Chronic medical issues: Hypertension Diabetes mellitus Dementia History of bladder cancer in remission -- cont home meds - monitor fever curve, cont abx - follow covid19 result - if clinically improves possible d/c tomorrow Subjective Date of service: 12/14/19 Interval history: patient seen and examined spiked temp this afternoon denies any chest pain, no SOB but states that she is feeling very week denies any cough Objective - Exam Narrative Exam: General appearance: Present: no acute distress, well-nourished - EENT Eyes: Present: PERRL, EOM intact. Absent: scleral icterus ENT: hearing intact, clear oral mucosa, dentition normal - Neck Neck: Present: supple, normal ROM - Respiratory Respiratory effort: normal Respiratory: bilateral: CTA - Cardiovascular Rhythm: regular Heart Sounds: Present: S1 & S2. Absent: gallop, systolic murmur, diastolic murmur, rub - Extremities Extremities: no ischemia, pulses intact, pulses symmetrical, No edema, Full ROM Peripheral Pulses: within normal limits - Abdominal General gastrointestinal: Present: soft, non-tender, non-distended, normal bowel sounds. Absent: mass - Integumentary Integumentary: Present: clear, warm, dry - Musculoskeletal Musculoskeletal: strength equal bilaterally - Psychiatric Psychiatric: appropriate mood/affect, intact judgment & insight, memory intact, cooperative - Neurologic Neurologic: CNII-XII intact, no focal deficits, moves all extremities - Constitutional Vitals: Vital Signs - 12hr 12/15/19 12/15/19 12/15/19 05:18 07:16 08:10 Temperature 98.9 F 98.9 F Pulse Rate 99 H 97 H Respiratory 18 20 18 Rate Blood Pressure 141/72 132/65 O2 Sat by Pulse 97 100 Oximetry 12/15/19 12/15/19 10:57 11:48 Temperature 98.4 F Pulse Rate 98 H 94 H Respiratory 18 Rate Blood Pressure 134/63 O2 Sat by Pulse 100 Oximetry - Labs CBC & Chem 7: 12/14/19 02:15 12/14/19 02:15 Labs: Abnormal lab results 12/14/19 Range/Units 15:27 U Epithel Cells (Auto) 49.0 H (0-13.0) /HPF HEART Score - HEART Score EKG: Non-specific Age: > 65 Risk factors: > 3 risk factors or hx of atherosclerotic disease Troponin: Troponin T < 0.010 ng/mL (0.00-0.029) 12/14/19 05:53 Troponin: < normal limit
[2019-12-15 16:08] VITALS: BP 147/67
== END 2019-12-15 20:31 | disposition home health service (06) ==
LOC: ED 18:21 → 4A 23:09
PROVIDERS: ADMIT Internal Medicine Geriatric Medicine; ATTEND Internal Medicine
DX: R07.89 Other chest pain (principal); Z20.828 Contact with and (suspected) exposure to other viral communicable diseases; I10 Essential (primary) hypertension; E11.9 Type 2 diabetes mellitus without complications; E78.5 Hyperlipidemia, unspecified; F02.80 Dementia in other diseases classified elsewhere, unspecified severity, without behavioral disturbance, psychotic disturbance, mood disturbance, and anxiety; R94.31 Abnormal electrocardiogram [ECG] [EKG]; R94.5 Abnormal results of liver function studies; Z90.710 Acquired absence of both cervix and uterus; Z85.51 Personal history of malignant neoplasm of bladder; Z79.82 Long term (current) use of aspirin
CPT/HCPCS: 36415; 71045; 78452; 80048; 80053; 80061; 81001; 82962; 84484; 85025; 85610; 93005; 93017; 94760; 99291; A9502; G0378; J2785; U0003; 85007; J1650